=== PATIENT | female | born 1995 | race Caucasian/White ===

== ENCOUNTER 2018-03-07 14:34 | Emergency (ER) | payer OTHER ==
[2018-03-07 14:57] VITALS: BP 110/80; PULSE 70; TEMP 98.1; BMI 16.8
[2018-03-07] MEDS ORDERED: SODIUM CHLORIDE 0.9% 1000 ML INFUS.BAG IV ONE (16:09)
--- NOTE | 2018-03-07 16:22 | PDOC ---
Attending Attestation - Resident Resident Name: MeghanPham - ED Attending Attestation I have performed the following: I have examined & evaluated the patient, The case was reviewed & discussed with the resident, I agree w/resident's findings & plan, Exceptions are as noted - HPI HPI: 03/07/18 16:09 23 yo F no pnhx here with llq pain and diarrhea. x 5 days. no abx. no travel. no black stool no family h/o ibs chrons or uc. - Physicial Exam PE: 03/07/18 16:10 awake alert lung ctab no wheeze no crackles. heart rrr no mrg. abd soft mild llq ttp. no rebound, no guarding. no rebound. skin warm and dry. no cva tenderness. - Medical Decision Making 03/07/18 16:22 pt with diarrhea x 5 days. relatively nontender exam. plan labs r/o electrolyte abnormality, iv hydration. pepcid. reassess. ua ucg. <Keke Bustillo - Last Filed: 03/07/18 16:09> - HPI HPI: 03/07/18 16:24 The patient is a 23 year old female with a past medical history of asthma who presents to the emergency department for evaluation of abdominal pain. The patient reports a 5 day history of worsening lower left quadrant abdominal pain. Pt reports the llq pain is exacerbated with eating. She reports associated symptoms of decreased appetite (3 days) and nausea without vomiting. The patient reports a few episodes diarrhea described as loose,watery, and dark in color which occurred yesterday. She states she is unable to pass stool secondary to her not eating. The patients LMP was 02/27/18. The patient denies recent travel, recent use of antibiotics, history of ovarian cysts, crohn's disease, and kidney stones. Denies cp, sob, f/c, vomiting, dysuria, hematuria, and urinary frequency/urgency. Allergies: NKDA Social History: No reported alcohol, cigarette, or drug use. Surgical History: Pt denies. PCP: Dr. Denia Gan ([phone]) <Maritza Bhandari - Last Filed: 03/07/18 16:28> Attestations - Attestations Documentation prepared by Mraitza Bhandari, acting as biomedical equipment support specialist for Keke Bustillo MD. <Maritza Bhandari - Last Filed: 03/07/18 16:28>
[2018-03-07 16:48] LABS: BASO % 0.9 % (0-2.0); EOS % 0.5 % (0-4.5); HEMATOCRIT 40.5 % (32.4-45.2); HEMOGLOBIN 14.4 GM/dL (10.7-15.3); LYMPH % 33.9 % (8-40); MCH 32.7 pg (25.7-33.7); MCHC 35.5 g/dl (32.0-36.0); MEAN CELL VOLUME 92.2 fl (80-96); MEAN PLT VOLUME 7.7 fl (7.5-11.1); MONO % 7.7 % (3.8-10.2); PLATELET COUNT 263 K/MM3 (134-434); RDW 11.6 % (11.6-15.6); WHITE BLOOD COUNT 4.6 K/mm3 (4.0-10.0)
--- NOTE | 2018-03-07 16:51 | PDOC ---
History of Present Illness - General Chief Complaint: Pain Stated Complaint: ABD PAIN History Source: Patient - History of Present Illness Initial Comments: 03/07/18 16:46 Patient is a 23 year old female with PMH of asthma presenting to ED with LLQ abdominal pain. The pain started on Friday, does not radiate and is associated with nausea and diarrhea. The pain worsened today and the patient noticed that the stool was black. She denies vomiting, fever, chills, joint/muscle pain, cough, SOB, dysuria, abnormal vaginal bleeding or discharge. She states that she did not eat anything out of the ordinary on Friday. She has been taking Pepto Bismol and Mylanta. LMP February 27. PMH: asthma PSH: none Meds: none Allergies: nka social: occasional alcohol use, denies tobacco, marijuana illicit drug use. Past History - Past Medical History Allergies/Adverse Reactions: Allergies Allergy/AdvReac Type Severity Reaction Status Date / Time No Known Allergies Allergy Verified 03/07/18 14:53 Home Medications: Ambulatory Orders NK [No Known Home Medication] 03/07/18 Asthma: Yes COPD: No - Suicide/Smoking/Psychosocial Hx Smoking History: Never smoked Have you smoked in the past 12 months: No Information on smoking cessation initiated: No Hx Alcohol Use: No Drug/Substance Use Hx: No Substance Use Type: None Review of Systems - Review of Systems Constitutional: Yes: See HPI, Weakness. No: Chills, Fever HEENTM: No: Recent change in vision, Throat Pain, Mouth Pain, Difficulty Swallowing Respiratory: No: Cough, Shortness of Breath, Wheezing Cardiac (ROS): No: Chest Pain, Lightheadedness, Palpitations, Syncope ABD/GI: Yes: Diarrhea, Nausea, Abdominal cramping (LLQ abdominal pain), Tarry Stools. No: Constipated, Vomiting : No: Burning, Dysuria, Discharge, Flank Pain, Hematuria Musculoskeletal: No: Back Pain, Joint Pain, Muscle Pain, Muscle Weakness Neurological: Yes: Weakness. No: Headache, Numbness, Paresthesia *Physical Exam - Vital Signs Last Vital Signs Temp Pulse Resp BP Pulse Ox 98.1 F 70 16 110/80 100 03/07/18 14:50 03/07/18 14:50 03/07/18 14:50 03/07/18 14:50 03/07/18 14:50 - Physical Exam General Appearance: Yes: Nourished, Appropriately Dressed, Thin. No: Apparent Distress HEENT: positive: EOMI, MATT, Normal ENT Inspection Neck: positive: Trachea midline, Supple. negative: Lymphadenopathy (L) Respiratory/Chest: positive: Lungs Clear, Normal Breath Sounds. negative: Crackles, Rales, Wheezing Cardiovascular: positive: Regular Rhythm, Regular Rate, S1, S2. negative: Edema , JVD, Murmur Vascular Pulses: Dorsalis-Pedis (R): 2+, Doralis-Pedis (L): 2+ Gastrointestinal/Abdominal: positive: Normal Bowel Sounds, Soft. negative: Tender, Protuberent, Guarding, Rebound, Tenderness Musculoskeletal: negative: CVA Tenderness Extremity: positive: Normal Capillary Refill Integumentary: positive: Normal Color, Dry, Warm Neurologic: positive: medical secretary II-XII NML intact, Fully Oriented, Alert, Normal Mood/ Affect, Normal Response ED Treatment Course - LABORATORY CBC & Chemistry Diagram: 03/07/18 16:35 03/07/18 16:35 *DC/Admit/Observation/Transfer Diagnosis at time of Disposition: Diarrhea, Abdominal pain - Discharge Dispostion Disposition: HOME Condition at time of disposition: Stable - Referrals Referrals: Denia Gan [Primary Care Provider] - - Patient Instructions Printed Discharge Instructions: Diarrhea Additional Instructions: You were seen here today because you were having abdominal pain and diarrhea. We did some blood tests and they came back normal. Please keep yourself hydrated by drinking water, Gatorade,tea or soup. You can take over the counter medicines like Imodium and ibuprofen for the pain. Follow the directions on the package. Please follow up with your PCP within 2-3 days. Please come back to the ED if: your pain gets worse, if you start vomiting, if you cannot keep anything down, if you develop fever or if any new concerning symptom develops. Thank you. - Post Discharge Activity Forms/Work/School Notes: Back to Work
[2018-03-07 16:52] LABS: URINE APPEARANCE CLEAR; URINE BILIRUBIN NEGATIVE (<2.0 mg/dL); URINE COLOR YELLOW; URINE GLUCOSE (UA) NEGATIVE (NEGATIVE); URINE KETONE 2+ (NEGATIVE); URINE LEUK ESTERASE NEGATIVE (NEGATIVE); URINE NITRITE NEGATIVE (NEGATIVE); URINE PROTEIN NEGATIVE (NEGATIVE); URINE UROBILINOGEN NEGATIVE mg/dL (0.2-1.0)
[2018-03-07 16:56] LABS: HCG,QUALITATIVE URINE NEGATIVE
[2018-03-07 16:57] LABS: EPI CELLS RARE /HPF (FEW); URINE BACTERIA RARE /hpf (NONE SEEN); URINE MUCUS MANY
[2018-03-07 17:07] LABS: ALBUMIN 4.2 g/dl (3.4-5.0); ANION GAP 8 (8-16); BLOOD UREA NITROGEN 13 mg/dL (7-18); CALCIUM 8.9 mg/dL (8.5-10.1); CHLORIDE 105 mmol/L (98-107); CO2 27 mmol/L (21-32); CREATININE 0.7 mg/dL (0.55-1.02); GLUCOSE,RANDOM 130 mg/dL (74-106); POTASSIUM 3.7 mmol/L (3.5-5.1); SGOT/AST 14 U/L (15-37); SGPT/ALT 23 U/L (12-78); SODIUM 140 mmol/L (136-145)
[2018-03-07 17:09] LABS: ALK PHOS 84 U/L (45-117); BILIRUBIN,TOTAL 0.5 mg/dL (0.2-1.0); TOT PROT 7.5 g/dl (6.4-8.2)
== END 2018-03-07 18:17 | disposition home or self-care (01) ==
LOC: JER 14:34
DX: R10.30 Lower abdominal pain, unspecified (principal); R19.7 Diarrhea, unspecified; Z87.09 Personal history of other diseases of the respiratory system
CPT/HCPCS: 36415; 80053; 81003; 81015; 82272; 83690; 84703; 85025; 99282-25; J7030

== ENCOUNTER 2024-07-21 09:34 | Emergency (ER) | payer OTHER ==
[2024-07-21 09:39] VITALS: TEMP 97.9; BMI 16.8
[2024-07-21] MEDS ORDERED: AMOX TR/POT CLAV 875MG/125MG TABLETS (FP) ONE (09:52)
[2024-07-21] MEDS ORDERED: IBUPROFEN 600 MG TABLET (FP) PO ONE (09:52)
[2024-07-21] MEDS: AMOX TR/POT CLAV 875MG/125MG TABLETS (FP) PO ONE (09:53)
[2024-07-21] MEDS: IBUPROFEN 600 MG TABLET (FP) PO ONE (09:53)
[2024-07-21] MEDS ORDERED: ACETAMINOPHEN 500 MG TABLET (FP) ONE (10:00)
[2024-07-21] MEDS: ACETAMINOPHEN 500 MG TABLET (FP) PO ONE (10:03)
[2024-07-21 10:16] VITALS: BP 126/72; PULSE 96; RESP 18
== END 2024-07-21 10:17 | disposition home or self-care (01) ==
LOC: JER 09:34 → JERFT 09:34
DX: H66.91 Otitis media, unspecified, right ear (principal); R09.81 Nasal congestion
CPT/HCPCS: 99283-25

== ENCOUNTER 2025-03-19 19:28 | Emergency (ER) | payer OTHER ==
[2025-03-19 19:50] VITALS: BP 124/71; PULSE 87; RESP 18; TEMP 98.4; BMI 16.8
[2025-03-19] MEDS ORDERED: ACETAMINOPHEN 325 MG TABLET (FP) ONE (20:13)
[2025-03-19] MEDS: ACETAMINOPHEN 500 MG TABLET (FP) PO ONE (20:28)
[2025-03-19 20:52] LABS: EPI CELLS 33 /uL (0-25.1); HYALINE CASTS 0 /uL (0-3.1); URINE APPEARANCE TURBID; URINE BACTERIA 48 /uL (0-1359); URINE BILIRUBIN NEGATIVE (NEGATIVE); URINE COLOR YELLOW; URINE GLUCOSE (UA) NEGATIVE (NEGATIVE); URINE KETONE NEGATIVE (NEGATIVE); URINE LEUK ESTERASE TRACE (NEGATIVE); URINE NITRITE NEGATIVE (NEGATIVE); URINE PROTEIN NEGATIVE (NEGATIVE); URINE RBC 118 /uL (0-23.9); URINE UROBILINOGEN 1.0 mg/dL (0.2-1.0); URINE WBC 6 /uL (0-25.8)
== END 2025-03-19 21:05 | disposition home or self-care (01) ==
LOC: JER 19:28
DX: N30.01 Acute cystitis with hematuria (principal); M54.50 Low back pain, unspecified; R20.2 Paresthesia of skin; R30.0 Dysuria; R35.0 Frequency of micturition
CPT/HCPCS: 81003; 84703; 87086; 99283-25